=== PATIENT | female | born 1985 | race Two or more races ===

== ENCOUNTER 2018-03-23 18:11 | Emergency (ER) | payer BC ==
[2018-03-23] MEDS ORDERED: Ketorolac 60 MG/2 ML SDV IM ONE (18:25)
--- NOTE | 2018-03-23 18:29 | EDM.PDOC ---
ED HPI GENERAL MEDICAL PROBLEM - General Stated Complaint: ALLERGY Time Seen by Provider: 03/23/18 18:11 Source of Information: Reports: Patient, Family History Limitations: Reports: No Limitations - History of Present Illness INITIAL COMMENTS - FREE TEXT/NARRATIVE: 32 y.o.w.f came with her SO to the ed due to cold symptoms in the past few days , running nose, sore throat and gen body ache. Pt works in a [employer]. No N/V/D or dizziness or any other acute medical issues. BP 124/78 npulse 88 RR 18 Temp 36.6 O2 sat 99% on RA Onset Date: 03/21/18 Onset Time: 10:00 Duration: Day(s):, Getting Worse, Intermittent Location: Reports: Generalized Quality: Reports: Ache, Burning, Dull Severity: Moderate Improves with: Reports: Rest Worsens with: Reports: Movement Context: Reports: Sick Contact Generalized Pain Score (Numeric/FACES): 4 - Related Data Allergies Allergy/AdvReac Type Severity Reaction Status Date / Time ondansetron [From Zofran] Allergy Hyperactivi Verified 03/23/18 18:24 ty Home Meds: Home Meds Norethindrone-E.estradiol-Iron [Reed Fe 1-20 Tablet] 1 tab PO DAILY 03/23/18 [ History] ED ROS ENT - Review of Systems Review Of Systems: See Below Constitutional: Reports: Decreased Appetite HEENT: Reports: Rhinitis, Throat Pain Respiratory: Reports: No Symptoms Cardiovascular: Reports: No Symptoms Endocrine: Reports: No Symptoms GI/Abdominal: Reports: No Symptoms : Reports: No Symptoms Musculoskeletal: Reports: Muscle Pain (generalized) Skin: Reports: No Symptoms Neurological: Reports: No Symptoms Psychiatric: Reports: No Symptoms Hematologic/Lymphatic: Reports: No Symptoms Immunologic: Reports: No Symptoms ED EXAM, ENT - Physical Exam Exam: See Below Exam Limited By: No Limitations General Appearance: Alert, WD/WN, Mild Distress Eye Exam: Bilateral Eye: Normal Inspection Ears: Normal External Exam, Normal Canal, Hearing Grossly Normal, Normal TMs Nose: Normal Mucousa, No Blood, Clear Rhinorrhea Mouth/Throat: Pharyngeal Erythema Head: Atraumatic, Normocephalic Neck: Normal Inspection, Supple, Non-Tender, Full Range of Motion Respiratory/Chest: No Respiratory Distress, Lungs Clear, Normal Breath Sounds, No Accessory Muscle Use, Chest Non-Tender Cardiovascular: Normal Peripheral Pulses, Regular Rate, Rhythm, No Edema, No Gallop, No JVD, No Murmur, No Rub GI/Abdominal: Normal Bowel Sounds, Soft, Non-Tender, No Organomegaly, No Abnormal Bruit, No Mass, Pelvis Stable (Female) Exam: Deferred Rectal (Female) Exam: Deferred Back: Normal Inspection, Full Range of Motion Extremities: Normal Inspection, Normal Range of Motion, Non-Tender, No Pedal Edema, Normal Capillary Refill Neurological: Alert, Oriented, CN II-XII Intact, Normal Cognition, Normal Gait, No Motor/Sensory Deficits Psychiatric: Normal Affect, Normal Mood Skin: Warm, Dry, Intact, Normal Color, No Rash Lymphatic: No Adenopathy Course - Vital Signs Text/Narrative:: 32 y.o.w.f came with her SO to the ed due to cold symptoms in the past few days , running nose, sore throat and gen body ache. Pt works in a [employer]. No N/V/D or dizziness or any other acute medical issues. BP 124/78 npulse 88 RR 18 Temp 36.6 O2 sat 99% on RA PE: 32 y.o.w.f wit viral syndrome Labs: RST, Influenza test were neg. Impression: Viral Syndrome Tx: Toradol Reexam: Improved Plan: D/C with instructions Last Recorded V/S: Last Vital Signs Temp 36.8 C 03/23/18 19:17 Pulse 87 03/23/18 19:17 Resp 18 03/23/18 19:17 BP 131/71 03/23/18 19:17 Pulse Ox 98 03/23/18 19:17 - Orders/Labs/Meds Orders: Active Orders 24 hr Category Date Time Status CULTURE STREP A CONFIRMATION [] Stat Lab 03/23/18 18:35 Results INFLUENZA A+B AG SCREEN [RM] Stat Lab 03/23/18 18:25 COMP STREP SCRN A RAPID W CULT CONF [] Stat Lab 03/23/18 18:35 Ordered Meds: Medications Discontinued Medications Generic Name Dose Route Start Last Admin Trade Name Freq PRN Reason Stop Dose Admin Ketorolac Tromethamine 60 mg 03/23/18 18:25 03/23/18 18:55 Toradol IM 03/23/18 18:26 60 mg ONETIME ONE Administration Departure - Departure Time of Disposition: 19:14 Disposition: Home, Self-Care 01 Condition: Good Clinical Impression: Viral syndrome - Discharge Information Instructions: Pharyngitis Referrals: PCP,None [Primary Care Provider] - Forms: ED Return to Work/School Form Additional Instructions: Please take Motrin for pain, increase warm fluid intake, please f/u, come back if your symptoms get worse acutely - My Orders Last 24 Hours: My Active Orders 03/23/18 18:25 INFLUENZA A+B AG SCREEN [] Stat 03/23/18 18:35 CULTURE STREP A CONFIRMATION [RM] Stat STREP SCRN A RAPID W CULT CONF [] Stat - Assessment/Plan Last 24 Hours: My Active Orders 03/23/18 18:25 INFLUENZA A+B AG SCREEN [] Stat 03/23/18 18:35 CULTURE STREP A CONFIRMATION [] Stat STREP SCRN A RAPID W CULT CONF [] Stat
== END 2018-03-23 19:20 | disposition home or self-care (01) ==
LOC: FB.ED 18:11
DX: B34.9 Viral infection, unspecified (principal); Z88.8 Allergy status to other drugs, medicaments and biological substances
CPT/HCPCS: 87081; 87804; 87880; 96372; 99283; J1885

== ENCOUNTER 2019-07-27 19:36 | Emergency (ER) | payer BC, MEDICAID ==
--- NOTE | 2019-07-27 19:51 | EDM.PDOC ---
ED HPI GENERAL MEDICAL PROBLEM - General Stated Complaint: PASSED OUT Time Seen by Provider: 07/27/19 19:36 Source of Information: Reports: Patient History Limitations: Reports: No Limitations - History of Present Illness INITIAL COMMENTS - FREE TEXT/NARRATIVE: 34 y.o.w.f came to the ED after she mccann and argument with her boyfriend, was so angry and passes suddely out, found herself on the floor, LOC for a few sec(?)> Pt denied palpitations, N/V/D. denied , no CP or SOB. This event never happened before. She felt a minor discomfort at her right forearm, which she stretched out in order to "protect" herself. Pt denied drug and ETOH use. BP 147 /79 RR 18 Pulse ox 100% on RA Pulse 65 Temp 36.8 Onset Date: 07/27/19 Onset Time: 18:30 Duration: Improving Location: Reports: Generalized Quality: Reports: Other Severity: Mild Improves with: Reports: Rest Worsens with: Reports: Other Context: Reports: Other (pt was very angry torward her boyfriend, argued with him and found herself suddenly on the floor) Associated Symptoms: Reports: Syncope upper back and right hand Pain Score (Numeric/FACES): 4 - Related Data Allergies Allergy/AdvReac Type Severity Reaction Status Date / Time ondansetron [From Zofran] Allergy Hyperactivi Verified 03/23/18 18:24 ty prochlorperazine Allergy Anxiety Verified 07/27/19 20:10 [From Compazine] Home Meds: Home Meds Norethindrone-E.estradiol-Iron [Reed Fe 1-20 Tablet] 1 tab PO DAILY 03/23/18 [ History] Past Medical History - Past Health History Medical/Surgical History: Denies Medical/Surgical History Social & Family History - Family History Family Medical History: Noncontributory - Caffeine Use Caffeine Use: Reports: Coffee ED ROS GENERAL - Review of Systems Review Of Systems: See Below Constitutional: Reports: No Symptoms HEENT: Reports: No Symptoms Respiratory: Reports: No Symptoms Cardiovascular: Reports: No Symptoms Endocrine: Reports: No Symptoms GI/Abdominal: Reports: No Symptoms : Reports: No Symptoms Musculoskeletal: Reports: No Symptoms Skin: Reports: No Symptoms Neurological: Reports: Syncope Psychiatric: Reports: No Symptoms Hematologic/Lymphatic: Reports: No Symptoms Immunologic: Reports: No Symptoms - Physical Exam Exam: See Below Exam Limited By: No Limitations General Appearance: Alert, WD/WN, Mild Distress Eye Exam: Bilateral Eye: Normal Inspection Ears: Normal External Exam, Normal Canal Nose: Normal Inspection, Normal Mucosa, No Blood Throat/Mouth: Normal Lips, Normal Voice, No Airway Compromise Head Exam: Atraumatic, Normocephalic Neck: Normal Inspection, Supple, Non-Tender, Full Range of Motion Respiratory/Chest: No Respiratory Distress, Lungs Clear, Normal Breath Sounds Cardiovascular: Normal Peripheral Pulses GI/Abdominal: Normal Bowel Sounds, Soft, Non-Tender, No Mass, Pelvis Stable (Female) Exam: Deferred Rectal (Female) Exam: Deferred Neuro Exam (Abbreviated): Alert, Oriented, CN II-XII Intact, Normal Cognition, Normal Gait, No Motor/Sensory Deficits Back Exam: Normal Inspection, Full Range of Motion Extremities: Normal Inspection, Normal Range of Motion, Non-Tender, No Pedal Edema, Normal Capillary Refill Psychiatric: Normal Affect, Normal Mood Skin Exam: Warm, Dry, Intact, Normal Color, No Rash EKG INTERPRETATION EKG Date: 07/27/19 Time: 21:05 Rhythm: NSR Rate (Beats/Min): 63 [place]: Normal P-Wave: Present QRS: Normal ST-T: Normal QT: Normal Comparison: NA - No Prior EKG Course - Vital Signs Text/Narrative:: 34 y.o.w.f came to the ED after she mccann and argument with her boyfriend, was so angry and passes suddely out, found herself on the floor, LOC for a few sec(?)> Pt denied palpitations, N/V/D. denied , no CP or SOB. This event never happened before. She felt a minor discomfort at her right forearm, which she stretched out in order to "protect" herself. Pt denied drug and ETOH use. BP 147 /79 RR 18 Pulse ox 100% on RA Pulse 65 Temp 36.8 PE: WNWD W F with minor right arm discomfort. Orthostatics were neg Imaging: Not indicated. Labs: CBC, BMP nl , Ca was 8.3 however UDS: Negative Impression: Syncopal episode, Vasovagal Tx: Water PO Reexam: Pt felt better Plan: D/C with instructions Last Recorded V/S: Last Vital Signs Temp 36.8 C 07/27/19 21:15 Pulse 59 L 07/27/19 21:15 Resp 18 07/27/19 21:15 BP 154/76 H 07/27/19 21:15 Pulse Ox 100 07/27/19 21:15 Orthostatic Blood Pressure [ 146/84 Standing] Orthostatic Blood Pressure [ 145/78 Sitting] Orthostatic Blood Pressure [ 147/79 Supine] - Orders/Labs/Meds Orders: Active Orders 24 hr Category Date Time Status EKG Documentation Completion [RC] ASDIRECTED Care 07/27/19 21:01 Active CULTURE URINE [RM] Stat Lab 07/27/19 20:21 Ordered DRUG SCREEN, URINE ALERE [URCHEM] Stat Lab 07/28/19 05:40 Ordered EKG 12 Lead [EK] Routine Ther 07/27/19 21:01 Ordered Labs: Laboratory Tests 07/27/19 07/27/19 07/27/19 Range/Units 19:47 19:47 19:55 WBC 10.5 (4.5-12.0) X10-3/uL RBC 4.93 (3.23-5.20) x10(6)uL Hgb 13.7 (11.5-15.5) g/dL Hct 39.8 (30.0-51.3) % MCV 80.8 (80-96) fL MCH 27.8 (27.7-33.6) pg MCHC 34.4 (32.2-35.4) g/dL RDW 12.9 (11.5-15.5) % Plt Count 261 (125-369) X10(3)uL MPV 8.9 (7.4-10.4) fL Neut % (Auto) 66.2 (46-82) % Lymph % (Auto) 25.7 (13-37) % Long % (Auto) 5.5 (4-12) % Eos % (Auto) 2 (1.0-5.0) % Baso % (Auto) 1 (0-2) % Neut # (Auto) 6.9 (1.6-8.3) # Lymph # (Auto) 2.7 (0.6-5.0) # Long # (Auto) 0.6 (0.0-1.3) # Eos # (Auto) 0.2 (0.0-0.8) # Baso # (Auto) 0.1 (0.0-0.2) # Sodium (135-145) mmol/L Potassium (3.5-5.3) mmol/L Chloride (100-110) mmol/L Carbon Dioxide (21-32) mmol/L BUN (7-18) mg/dL Creatinine (0.55-1.02) mg/dL Est Cr Clr Drug Dosing Estimated GFR (MDRD) (>60) BUN/Creatinine Ratio (9-20) Glucose (80-116) mg/dL Calcium (8.6-10.2) mg/dL Urine Color Yellow (YELLOW) Urine Appearance Clear (CLEAR) Urine pH 7.0 H (5.0-6.5) Ur Specific [place] 1.015 (1.010-1.025) Urine Protein Negative (NEGATIVE) mg/dL Urine Glucose (UA) Normal (NORMAL) mg/dL Urine Ketones Negative (NEGATIVE) mg/dL Urine Occult Blood Negative (NEGATIVE) Urine Nitrite Negative (NEGATIVE) Urine Bilirubin Negative (NEGATIVE) Urine Urobilinogen Normal (NEGATIVE) mg/dL Ur Leukocyte Esterase Moderate H (NEGATIVE) Urine RBC 0-5 (0-5) Urine WBC 0-5 (0-5) Ur Squamous Epith Cells Few H (NS,R,O) Urine Bacteria Few H (NS) Urine HCG, Qual Negative (NEGATIVE) 07/27/19 Range/Units 19:55 WBC (4.5-12.0) X10-3/uL RBC (3.23-5.20) x10(6)uL Hgb (11.5-15.5) g/dL Hct (30.0-51.3) % MCV (80-96) fL MCH (27.7-33.6) pg MCHC (32.2-35.4) g/dL RDW (11.5-15.5) % Plt Count (125-369) X10(3)uL MPV (7.4-10.4) fL Neut % (Auto) (46-82) % Lymph % (Auto) (13-37) % Long % (Auto) (4-12) % Eos % (Auto) (1.0-5.0) % Baso % (Auto) (0-2) % Neut # (Auto) (1.6-8.3) # Lymph # (Auto) (0.6-5.0) # Long # (Auto) (0.0-1.3) # Eos # (Auto) (0.0-0.8) # Baso # (Auto) (0.0-0.2) # Sodium 142 (135-145) mmol/L Potassium 3.7 (3.5-5.3) mmol/L Chloride 107 (100-110) mmol/L Carbon Dioxide 27 (21-32) mmol/L BUN 8 (7-18) mg/dL Creatinine 0.7 (0.55-1.02) mg/dL Est Cr Clr Drug Dosing TNP Estimated GFR (MDRD) > 60 (>60) BUN/Creatinine Ratio 11.4 (9-20) Glucose 91 (80-116) mg/dL Calcium 8.3 L (8.6-10.2) mg/dL Urine Color (YELLOW) Urine Appearance (CLEAR) Urine pH (5.0-6.5) Ur Specific [place] (1.010-1.025) Urine Protein (NEGATIVE) mg/dL Urine Glucose (UA) (NORMAL) mg/dL Urine Ketones (NEGATIVE) mg/dL Urine Occult Blood (NEGATIVE) Urine Nitrite (NEGATIVE) Urine Bilirubin (NEGATIVE) Urine Urobilinogen (NEGATIVE) mg/dL Ur Leukocyte Esterase (NEGATIVE) Urine RBC (0-5) Urine WBC (0-5) Ur Squamous Epith Cells (NS,R,O) Urine Bacteria (NS) Urine HCG, Qual (NEGATIVE) Departure - Departure Time of Disposition: 21:01 Disposition: Home, Self-Care 01 Condition: Good Clinical Impression: Syncopal episodes Qualifiers: Syncope type: vasovagal syncope Qualified Code(s): R55 - Syncope and collapse - Discharge Information Instructions: Syncope, [id number], Dehydration, Adult Referrals: Esme Olmos MILK TRUCK DRIVER [Primary Care Provider] - Forms: ED Department Discharge Additional Instructions: Please increase water intake, please f/u with your PMD, please come back if your symptoms get worse acutely. - My Orders Last 24 Hours: My Active Orders 07/27/19 20:21 CULTURE URINE [RM] Stat 07/27/19 21:01 EKG Documentation Completion [RC] ASDIRECTED EKG 12 Lead [EK] Routine 07/28/19 05:40 DRUG SCREEN, URINE ALERE [URCHEM] Stat - Assessment/Plan Last 24 Hours: My Active Orders 07/27/19 20:21 CULTURE URINE [RM] Stat 07/27/19 21:01 EKG Documentation Completion [RC] ASDIRECTED EKG 12 Lead [EK] Routine 07/28/19 05:40 DRUG SCREEN, URINE ALERE [URCHEM] Stat
== END 2019-07-27 21:28 | disposition home or self-care (01) ==
LOC: FB.ED 19:36
DX: R55 Syncope and collapse (principal); Z88.8 Allergy status to other drugs, medicaments and biological substances
CPT/HCPCS: 36415; 80048; 80305-QW; 81001; 81025; 85025; 87086; 93005; 99284-25

== ENCOUNTER 2019-09-13 14:16 | Emergency (ER) | payer MEDICAID, OTHER ==
--- NOTE | 2019-09-13 15:30 | EDM.PDOC ---
ED HPI GENERAL MEDICAL PROBLEM - General Chief Complaint: ENT Problem Stated Complaint: MIGHT HAVE FLU,SORE THROAT,CHILLS Time Seen by Provider: 09/13/19 15:25 Source of Information: Reports: Patient History Limitations: Reports: No Limitations - History of Present Illness INITIAL COMMENTS - FREE TEXT/NARRATIVE: Developed bodyaches, fever to 102, sinus pressure, and sore throat yesterday. Symptoms improved today. Denies cough or SOB. Onset Date: 09/12/19 Severity: Mild throat Pain Score (Numeric/FACES): 10 - Related Data Allergies Allergy/AdvReac Type Severity Reaction Status Date / Time ondansetron [From Zofran] Allergy Hyperactivi Verified 09/13/19 14:35 ty prochlorperazine Allergy Anxiety Verified 09/13/19 14:35 [From Compazine] Home Meds: Home Meds Norethindrone-E.estradiol-Iron [Reed Fe 1-20 Tablet] 1 tab PO DAILY 03/23/18 [ History] Past Medical History - Past Health History Medical/Surgical History: Denies Medical/Surgical History Social & Family History - Family History Family Medical History: Noncontributory - Tobacco Use Smoking Status *Q: Never Smoker Second Hand Smoke Exposure: No - Caffeine Use Caffeine Use: Reports: Coffee, Energy Drinks, Soda, Tea - Recreational Drug Use Recreational Drug Use: No ED ROS ENT - Review of Systems Review Of Systems: Comprehensive ROS is negative, except as noted in HPI. ED EXAM, ENT - Physical Exam Exam: See Below Exam Limited By: No Limitations General Appearance: Alert, WD/WN, No Apparent Distress Ears: Normal External Exam, Normal TMs Nose: Normal Inspection Mouth/Throat: Pharyngeal Erythema. No: Uvular Deviation Head: Atraumatic, Normocephalic Neck: Supple Respiratory/Chest: No Respiratory Distress, Lungs Clear, Normal Breath Sounds Cardiovascular: Regular Rate, Rhythm, No Murmur Back: Full Range of Motion Extremities: Normal Range of Motion Neurological: Alert, Normal Cognition, No Motor/Sensory Deficits Psychiatric: Normal Affect, Normal Mood Skin: Warm, Dry, Intact Course - Vital Signs Last Recorded V/S: Last Vital Signs Temp 36.7 C 09/13/19 14:25 Pulse 67 09/13/19 14:25 Resp 17 09/13/19 14:25 BP 137/72 09/13/19 14:25 Pulse Ox 96 11/17/19 14:25 - Orders/Labs/Meds Orders: Active Orders 24 hr Category Date Time Status CULTURE STREP A CONFIRMATION [RM] Stat Lab 09/13/19 14:29 Results STREP SCRN A RAPID W CULT CONF [RM] Stat Lab 09/13/19 14:29 Results Labs: Microbiology 09/13/19 14:29 Influenza Type A Antigen Screen - Final Nasopharyngeal Swab NEGATIVE INFLUENZA A VIRUS AG REFERENCE RANGE: NEGATIVE Influenza Type B Antigen Screen - Final NEGATIVE INFLUENZA B VIRUS AG REFERENCE RANGE: NEGATIVE 09/13/19 14:29 Group A Streptococcus Rapid Screen - Final Throat NEGATIVE STREP A SCREEN REFERENCE RANGE: NEGATIVE Departure - Departure Time of Disposition: 15:28 Disposition: Home, Self-Care 01 Condition: Good Clinical Impression: Viral syndrome - Discharge Information *PRESCRIPTION DRUG MONITORING PROGRAM REVIEWED*: No *COPY OF PRESCRIPTION DRUG MONITORING REPORT IN PATIENT PRABHAKAR: Not Applicable Instructions: Viral Illness, Adult Referrals: Esme Olmos SCRAP HOOKER [Primary Care Provider] - Forms: ED Department Discharge, ED Return to Work/School Form Additional Instructions: Rest, drink plenty of fluids. Take Tylenol or Ibuprofen as needed. Follow up in 3 days if symptoms don't improve. Return to the ER if symptoms worsen. - My Orders Last 24 Hours: My Active Orders 09/13/19 14:29 CULTURE STREP A CONFIRMATION [RM] Stat STREP SCRN A RAPID W CULT CONF [RM] Stat - Assessment/Plan Last 24 Hours: My Active Orders 09/13/19 14:29 CULTURE STREP A CONFIRMATION [RM] Stat STREP SCRN A RAPID W CULT CONF [RM] Stat
== END 2019-09-13 15:38 | disposition home or self-care (01) ==
LOC: FB.ED 14:16
DX: B34.9 Viral infection, unspecified (principal); Z88.8 Allergy status to other drugs, medicaments and biological substances
CPT/HCPCS: 87081; 87804; 87804-59; 87880-QW; 99282; 99283

== ENCOUNTER 2020-10-05 00:06 | Emergency (ER) | payer MEDICAID ==
[2020-10-05] MEDS ORDERED: Sulfamethoxazole/Trimethoprim 800-160 MG Tab PO ONE (00:07)
--- NOTE | 2020-10-05 01:26 | EDM.PDOC ---
ED HPI GENERAL MEDICAL PROBLEM - General Chief Complaint: General Stated Complaint: BREATHING DIFFERENTLY Time Seen by Provider: 10/05/20 00:20 Source of Information: Reports: Patient History Limitations: Reports: No Limitations - History of Present Illness INITIAL COMMENTS - FREE TEXT/NARRATIVE: Patient presented to the Ed because of shortness of breath although her oxygen saturation was 98 % on RA. She denies any fever,chills,cough/cold, N/V/D. She also c/o of increase frequency of urination. - Related Data Allergies Allergy/AdvReac Type Severity Reaction Status Date / Time ondansetron [From Zofran] Allergy Hyperactivi Verified 09/13/19 14:35 ty prochlorperazine Allergy Anxiety Verified 09/13/19 14:35 [From Compazine] Home Meds: Home Meds norethindrone-e.estradioL-iron [Reed Fe 1-20 Tablet] 1 tab PO DAILY 03/23/18 [History] Past Medical History - Past Health History Medical/Surgical History: Denies Medical/Surgical History Social & Family History - Family History Family Medical History: No Pertinent Family History - Tobacco Use Tobacco Use Status *Q: Never Tobacco User Second Hand Smoke Exposure: No - Caffeine Use Caffeine Use: Reports: Coffee, Energy Drinks, Soda, Tea - Recreational Drug Use Recreational Drug Use: No ED ROS GENERAL - Review of Systems Review Of Systems: See Below Constitutional: Reports: No Symptoms HEENT: Reports: No Symptoms Respiratory: Reports: Shortness of Breath Cardiovascular: Reports: No Symptoms Endocrine: Reports: No Symptoms GI/Abdominal: Reports: No Symptoms : Reports: Frequency Musculoskeletal: Reports: No Symptoms Skin: Reports: No Symptoms Neurological: Reports: No Symptoms ED EXAM, GENERAL - Physical Exam Exam: See Below Exam Limited By: No Limitations General Appearance: Alert, No Apparent Distress Ears: Normal External Exam Nose: Normal Inspection, Normal Mucosa Throat/Mouth: Normal Inspection, Normal Lips, Normal Teeth Head: Atraumatic, Normocephalic Neck: Normal Inspection, Supple, Non-Tender, Full Range of Motion Respiratory/Chest: No Respiratory Distress, Lungs Clear, Normal Breath Sounds Cardiovascular: Normal Peripheral Pulses, Regular Rate, Rhythm, No Edema, No Gallop GI/Abdominal: Normal Bowel Sounds, No Organomegaly Back Exam: Normal Inspection, Full Range of Motion Extremities: Normal Inspection, Normal Range of Motion, Non-Tender Neurological: Alert, Oriented, CN II-XII Intact Course - Vital Signs Text/Narrative:: UC-pending Last Recorded V/S: Last Vital Signs Temp 36.7 C 10/05/20 00:15 Pulse 82 10/05/20 01:40 Resp 17 10/05/20 01:40 BP 133/82 10/05/20 01:40 Pulse Ox 97 10/05/20 01:40 - Orders/Labs/Meds Orders: Active Orders 24 hr Category Date Time Status CULTURE URINE [RM] Stat Lab 10/05/20 00:32 Received Labs: Laboratory Tests 10/05/20 10/05/20 Range/Units 00:32 00:32 Urine Color Yellow (YELLOW) Urine Appearance Slightly cloudy (CLEAR) Urine pH 8.0 H (5.0-6.5) Ur Specific [place] 1.015 (1.010-1.025) Urine Protein Negative (NEGATIVE) mg/dL Urine Glucose (UA) Normal (NORMAL) mg/dL Urine Ketones 15 H (NEGATIVE) mg/dL Urine Occult Blood Negative (NEGATIVE) Urine Nitrite Negative (NEGATIVE) Urine Bilirubin Negative (NEGATIVE) Urine Urobilinogen Normal (NEGATIVE) mg/dL Ur Leukocyte Esterase Moderate H (NEGATIVE) Urine RBC 0-5 (0-5) Urine WBC 0-5 (0-5) Ur Squamous Epith Cells Moderate H (NS,R,O) Amorphous Sediment Moderate Urine Bacteria Few H (NS) Urine HCG, Qual Negative (NEGATIVE) Departure - Departure Time of Disposition: 01:25 Disposition: Home, Self-Care 01 Condition: Good Clinical Impression: UTI (urinary tract infection) - Discharge Information Instructions: Urinary Tract Infection, Adult Referrals: Esme Olmos FRAMEWORK DEVELOPER [Primary Care Provider] - Forms: ED Department Discharge Additional Instructions: Please read discharge instructions on UTI Increase oral fluids Bactrim DS 2 times daily for 5 days Follow up as needed Sepsis Event Note (ED) - Evaluation Sepsis Screening Result: No Definite Risk - Focused Exam Vital Signs: Vital Signs Temp Pulse Resp BP Pulse Ox 10/05/20 01:40 82 17 133/82 97 10/05/20 00:15 36.7 C 74 17 142/81 H 99 - My Orders Last 24 Hours: My Active Orders 10/05/20 00:32 CULTURE URINE [RM] Stat - Assessment/Plan Last 24 Hours: My Active Orders 10/05/20 00:32 CULTURE URINE [RM] Stat
== END 2020-10-05 01:43 | disposition home or self-care (01) ==
LOC: FB.ED 00:06
DX: N39.0 Urinary tract infection, site not specified (principal); R06.02 Shortness of breath; Z88.8 Allergy status to other drugs, medicaments and biological substances
CPT/HCPCS: 81001; 81025; 87086; 99283; A9270-GY

== ENCOUNTER 2020-11-16 14:50 | Emergency (ER) | payer MEDICAID ==
[2020-11-16] MEDS ORDERED: Sodium Chloride 0.9% 10 ML Syringe FLUSH PRN (15:27)
[2020-11-16] MEDS ORDERED: Tranexamic Acid 1,000 MG in Sodium Chloride 0.9% 50 ML IV ONE (15:28)
--- NOTE | 2020-11-16 15:40 | EDM.PDOC ---
ED HPI GENERAL MEDICAL PROBLEM - General Chief Complaint: TRAINING DIRECTOR Problem Stated Complaint: Vaginal bleeding Time Seen by Provider: 11/16/20 15:00 Source of Information: Reports: Patient History Limitations: Reports: No Limitations - History of Present Illness INITIAL COMMENTS - FREE TEXT/NARRATIVE: Patient presented to the ED because of increase vaginal bleeding. She said she had 4 soaked pads in an hour and is feeling slightly lightheaded. She use to take an oral BCP but quit months ago. lower abd Pain Score (Numeric/FACES): 10 - Related Data Allergies Allergy/AdvReac Type Severity Reaction Status Date / Time ondansetron [From Zofran] Allergy Hyperactivi Verified 09/13/19 14:35 ty prochlorperazine Allergy Anxiety Verified 09/13/19 14:35 [From Compazine] Home Meds: Home Meds norethindrone-e.estradioL-iron [Reed Fe 1-20 Tablet] 1 tab PO DAILY 03/23/18 [History] medroxyPROGESTERone [Provera] 10 mg PO DAILY #10 tab 11/16/20 [Rx] Past Medical History - Past Health History Medical/Surgical History: Denies Medical/Surgical History Social & Family History - Family History Family Medical History: No Pertinent Family History - Tobacco Use Tobacco Use Status *Q: Never Tobacco User - Caffeine Use Caffeine Use: Reports: Coffee, Energy Drinks, Soda, Tea ED ROS GENERAL - Review of Systems Review Of Systems: See Below Constitutional: Reports: No Symptoms HEENT: Reports: No Symptoms Respiratory: Reports: No Symptoms Cardiovascular: Reports: No Symptoms Endocrine: Reports: No Symptoms GI/Abdominal: Reports: No Symptoms : Reports: No Symptoms Musculoskeletal: Reports: No Symptoms Skin: Reports: No Symptoms Neurological: Reports: No Symptoms Psychiatric: Reports: No Symptoms Hematologic/Lymphatic: Reports: No Symptoms ED EXAM, GENERAL - Physical Exam Exam: See Below Exam Limited By: No Limitations Ears: Normal External Exam Nose: Normal Inspection, Normal Mucosa Throat/Mouth: Normal Inspection Head: Atraumatic, Normocephalic Neck: Normal Inspection, Supple, Non-Tender Respiratory/Chest: No Respiratory Distress, Lungs Clear, Normal Breath Sounds Cardiovascular: Normal Peripheral Pulses, Regular Rate, Rhythm, No Edema, No Gallop GI/Abdominal: Normal Bowel Sounds, Soft, Non-Tender, No Organomegaly Extremities: Normal Inspection, Normal Range of Motion, Non-Tender Neurological: Alert, Oriented, CN II-XII Intact Course - Vital Signs Text/Narrative:: Lab results was discussed with patient TXA 1 gm IV x1 Last Recorded V/S: Last Vital Signs Temp 36.7 C 11/16/20 14:50 Pulse 70 11/16/20 14:50 Resp 16 11/16/20 14:50 BP 159/85 H 11/16/20 14:50 Pulse Ox 97 11/16/20 14:50 - Orders/Labs/Meds Orders: Active Orders 24 hr Category Date Time Status Sodium Chloride 0.9% [Saline Flush] Med 11/16/20 15:27 Active 10 ml FLUSH ASDIRECTED PRN Saline Lock Insert [OM.PC] Routine Oth 11/16/20 15:27 Ordered Medication Orders Sodium Chloride (Saline Flush) 10 ml FLUSH ASDIRECTED PRN PRN Reason: Keep Vein Open Last Admin: 11/16/20 15:44 Dose: 10 ml Documented by: Labs: Laboratory Tests 11/16/20 11/16/20 Range/Units 15:10 15:10 WBC 10.1 (3.0-10.3) x10-3/uL RBC 5.11 (3.60-5.20) x10(6)uL Hgb 13.4 (11.4-15.5) g/dL Hct 41.2 (34.2-48.2) % MCV 80.7 (76.7-100.5) fL MCH 26.3 (23.9-33.9) pg MCHC 32.6 (31.9-34.8) g/dL RDW 14.6 (12.3-16.5) % Plt Count 259 (151-488) x10(3)uL MPV 8.5 (7.1-12.4) fL Neut % (Auto) 67.9 (30.8-76.2) % Lymph % (Auto) 23.3 (18.4-52.1) % [place] % (Auto) 6.0 (4.4-15.7) % Eos % (Auto) 2.4 (0.6-8.1) % Baso % (Auto) 0.4 (0.2-1.5) % Neut # (Auto) 6.9 H (1.5-6.3) x10-3/uL Lymph # (Auto) 2.4 (1.0-4.4) x10-3/uL [place] # (Auto) 0.6 (0.3-1.0) x10-3/uL Eos # (Auto) 0.2 (0.0-0.8) x10-3/uL Baso # (Auto) 0.0 (0.0-0.1) x10-3/uL Urine HCG, Qual Negative (NEGATIVE) Meds: Medications Generic Name Dose Route Start Last Admin Trade Name Freq PRN Reason Stop Dose Admin Sodium Chloride 10 ml 11/16/20 15:27 11/16/20 15:44 Saline Flush FLUSH 10 ml ASDIRECTED PRN Administration Keep Vein Open Discontinued Medications Generic Name Dose Route Start Last Admin Trade Name Freq PRN Reason Stop Dose Admin Tranexamic Acid 1,000 mg/ 60 mls @ 200 mls/hr 11/16/20 15:28 Sodium Chloride IV 11/16/20 15:45 ONETIME ONE Departure - Departure Time of Disposition: 16:45 Disposition: Home, Self-Care 01 Condition: Good Clinical Impression: Abnormal uterine bleeding - Discharge Information Prescriptions: medroxyPROGESTERone [Provera] 10 mg PO DAILY #10 tab Instructions: Abnormal Uterine Bleeding Referrals: Esme Olmos NP [Primary Care Provider] - Forms: ED Department Discharge Additional Instructions: Please read discharge instructions on abnormal uterine bleeding Take provera 10 mg daily for 10 days Follow up with a internet retailer if your bleeding persist Sepsis Event Note (ED) - Evaluation Sepsis Screening Result: No Definite Risk - Focused Exam Vital Signs: Vital Signs Temp Pulse Resp BP Pulse Ox 11/16/20 14:50 36.7 C 70 16 159/85 H 97 - My Orders Last 24 Hours: My Active Orders 11/16/20 15:27 Sodium Chloride 0.9% [Saline Flush] 10 ml FLUSH ASDIRECTED PRN Saline Lock Insert [OM.PC] Routine - Assessment/Plan Last 24 Hours: My Active Orders 11/16/20 15:27 Sodium Chloride 0.9% [Saline Flush] 10 ml FLUSH ASDIRECTED PRN Saline Lock Insert [OM.PC] Routine
== END 2020-11-16 16:25 | disposition home or self-care (01) ==
LOC: FB.ED 14:50
DX: N93.9 Abnormal uterine and vaginal bleeding, unspecified (principal); Z88.8 Allergy status to other drugs, medicaments and biological substances
CPT/HCPCS: 36415; 81025; 85025; 96374; 99283; 99284-25